=== PATIENT | male | born 1955 | race Caucasian/White ===

== ENCOUNTER 2016-06-15 08:57 | Inpatient (IN) | payer MEDICARE ==
[~2016-06-15] VITALS: Ht 175.3 cm; Wt 107.5 kg
[~2016-06-15 08:57] MED LIST: ASPI81 PO; ATOR40TA PO; CELE200C PO; FENO160T2 PO; MORP30SU PO; VICO7.5T PO; ZIAC2.5T PO; ZOLP5TAB3 PO
[2016-06-15 09:02] VITALS: BP 148/87; PULSE 71; RESP 16; TEMP 99.5; O2SAT 95
[2016-06-15 09:12] VITALS: BP 148/87; PULSE 72; RESP 16; O2SAT 95
[2016-06-15] MEDS ORDERED: ATOR40TA16 PO (09:12)
[2016-06-15] MEDS ORDERED: FENO160T PO (09:12)
[2016-06-15] MEDS ORDERED: CELE1CAP8 PO (09:12)
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
[2016-06-15] MEDS ORDERED: DILAUDID PUMP (09:41)
[2016-06-15] MEDS ORDERED: KETOROLAC TROMETHAMINE 60 MG/2 ML (IM) VIAL IM ONE (09:45)
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
[2016-06-15 10:32] VITALS: BP 132/81; PULSE 65; RESP 16; O2SAT 95
[2016-06-15 12:05] VITALS: BP 136/67; PULSE 69; RESP 22; O2SAT 93
[2016-06-15] MEDS ORDERED: SODIUM CHLORIDE 0.9% FLUSH 5 ML FLUSH FLUSH PRN (13:00)
[2016-06-15] MEDS ORDERED: NALOXONE HCL 0.4 MG/ML AMP IV PRN ×3 (13:00→14:00)
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
[2016-06-15] MEDS ORDERED: ACETAMINOPHEN 325 MG TAB PO PRN (13:30)
[2016-06-15] MEDS ORDERED: TEMAZEPAM 15 MG CAP PO PRN (13:30)
[2016-06-15] MEDS ORDERED: ONDANSETRON HCL 4 MG/2 ML VIAL IVP PRN (13:30)
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
[2016-06-15] MEDS ORDERED: ACETAMINOPHEN/HYDROcodone 325 MG/10 MG TAB PO PRN (14:00)
[2016-06-15] MEDS ORDERED: ACETAMINOPHEN/HYDROcodone 325 MG/5 MG TAB PO PRN (14:00)
[2016-06-15] MEDS: NICOTINE 21 MG/24 HR PATCH TD SCH (16:48)
[2016-06-15] MEDS: SODIUM CHLOR 0.9% 1000 ML INJ 1,000 ML IV SCH ×2 (16:48→17:10)
[2016-06-15 17:05] VITALS: BP 144/77; PULSE 62; RESP 18; TEMP 98.2; O2SAT 93
[2016-06-15] MEDS: MORPHINE SULFATE 4 MG/ML INJ IV PRN ×2 (17:17→21:44)
[2016-06-15 20:00] VITALS: BP 135/68; PULSE 67; RESP 22; TEMP 97.9; O2SAT 93
[2016-06-15] MEDS ORDERED: SODIUM CHLORIDE 0.9% FLUSH 5 ML FLUSH FLUSH SCH (21:00)
[2016-06-15] MEDS: REMOVE OLD NICODERM (NICOTINE) PATCH TD SCH (21:00)
[2016-06-15] MEDS: DOCUSATE SODIUM 50 MG/SENNA 8.6 MG TAB PO SCH (21:19)
[2016-06-16] VITALS (9 sets, daily range): BP systolic 99–131; BP diastolic 55–69; PULSE 55–91; RESP 16–18; TEMP 96.4–99.1; O2SAT 89–96
[2016-06-16] MEDS ORDERED: INSULIN HUMAN REGULAR 1,000 UNITS/10 ML VIAL SQ PRN (02:00)
[2016-06-16] MEDS ORDERED: SODIUM CHLORID 0.9% 500 ML IV SCH (02:00)
[2016-06-16] MEDS: LACTATED RINGER'S 1000 ML IV SCH (02:00)
[2016-06-16] MEDS ORDERED: METOPROLOL TARTRATE 25 MG TAB PO PRN (02:00)
[2016-06-16 02:01] LABS: AUTOMATED NEUTROPHIL # 7.8 TH/MM3 (1.8-7.7); BASOPHIL # 0.1 TH/MM3 (0-0.2); BASOPHIL % 0.6 % (0.0-2.0); EOSINOPHIL # 0.2 TH/MM3 (0-0.4); EOSINOPHIL % 2.4 % (0.0-4.0); HEMATOCRIT 42.6 % (39.0-51.0); HEMO FLAGS DIFF FINAL; LYMPH % 16.1 % (9.0-44.0); LYMPHOCYTE # 1.7 TH/MM3 (1.0-4.8); MEAN CELL VOLUME 86.9 FL (80.0-100.0); MEAN CORPUSCULAR HEMOGLOBIN 29.4 PG (27.0-34.0); MEAN CORPUSCULAR HGB CONC 33.8 % (32.0-36.0); MONO % 6.7 % (0.0-8.0); NEUT % 74.2 % (16.0-70.0); PLATELET COUNT 247 TH/MM3 (150-450); RED CELL DISTRIBUTION WIDTH 12.9 % (11.6-17.2); WHITE BLOOD COUNT 10.6 TH/MM3 (4.0-11.0)
[2016-06-16 02:13] LABS: INTERNATIONAL NORMALIZED RATIO 1.1 RATIO; PROTHROMBIN TIME - PATIENT 12.3 SEC (9.8-11.6)
[2016-06-16 02:42] LABS: BICARBONATE 28.3 MEQ/L (21.0-32.0); POTASSIUM 3.8 MEQ/L (3.5-5.1)
[2016-06-16] MEDS: SODIUM CHLOR 0.9% 1000 ML INJ 1,000 ML IV SCH ×3 (03:44→17:58)
[2016-06-16] MEDS: MORPHINE SULFATE 4 MG/ML INJ IV PRN (06:11)
[2016-06-16] MEDS ORDERED: GENTAMICIN SULFATE 80 MG/2 ML VIAL ONE (06:25)
[2016-06-16] MEDS ORDERED: ceFAZolin 2 GM PREMIX 50 ML ONE (06:41)
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
[2016-06-16] MEDS ORDERED: HYDR-3366 PO (06:43)
[2016-06-16] MEDS ORDERED: WALKER WHEELS/F1 MIS (06:43)
[2016-06-16] MEDS ORDERED: XARE10TA PO (06:43)
--- NOTE | 2016-06-16 06:44 | HHI.FF ---
Face to Face Verification Diagnosis: (1) Closed right hip fracture Physical Therapy Gait training Hip: Total hip, Protocol: Right, Posterior hip precautions, Progress to weight bearing Canvas Knee Splint: Other (only wear while in bed) Right LE Weight Bearing: WB as tolerated Nursing Dressing Changes: Daily dressing change, Coverderm/Primapore (begin xeroform POD 10) I have seen patient Daniel Huddleston on 06/16/16. My clinical findings support the need for the requested home health care services because: Ltd mobility - disease progression I certify that my clinical findings support that this patient is homebound because: Post-op weakness Daniel Mustafa Jun 16, 2016 06:44
[2016-06-16] MEDS: ATORVASTATIN 40 MG TAB PO SCH (09:00)
[2016-06-16] MEDS: DOCUSATE SODIUM 50 MG/SENNA 8.6 MG TAB PO SCH ×2 (09:00→21:00)
[2016-06-16] MEDS ORDERED: VANCOMYCIN HCL 1000 MG VIAL ONE (09:09)
[2016-06-16] MEDS ORDERED: SODIUM CHLOR 0.9% 250 ML INJ 250 ML ONE (09:10)
[2016-06-16] MEDS ORDERED: ACETAMINOPHEN 1000 MG/100 ML VIAL IV ONE (09:45)
[2016-06-16] MEDS ORDERED: MIDAZOLAM HCL 2 MG/2 ML VIAL ONE (09:45)
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
[2016-06-16] MEDS ORDERED: SODIUM CHLORIDE 0.9% IV SCH (10:00)
[2016-06-16] MEDS ORDERED: TRANEXAMIC ACID IV SCH (10:00)
[2016-06-16] MEDS ORDERED: VANCOMYCIN HCL 1000 MG VIAL OTHER ONE (10:15)
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
[2016-06-16] MEDS ORDERED: EXPAREL PERI-ARTICULAR INJECTION (TOTAL VOL. 60 ML) P-ARTICULR ONE ×2 (10:45)
--- NOTE | 2016-06-16 11:22 | PD.OP ---
cc: Alexandre Greco MD Operative Report Date of Surgery: Jun 16, 2016 Preoperative Diagnosis: Displaced right femoral neck fracture Postoperative Diagnosis: Same Procedure: Right hip bipolar hemiarthroplasty Anesthesia: Gen. Surgeon: Alexandre Greco [employer] Consultant(s): MANAN Faith PA-C The surgical procedure was assisted by my physician assistant womens volleyball coach. My P.A. presence was necessary throughout this case for the manipulation and positioning of the surgical extremity. My P.A. was assisting me throughout the duration of this procedure. The skill set of a physician assistant womens volleyball coach was medically necessary to complete this procedure. During the surgical case the ophthalmology surgical technician was working at the back table and the physician assistant womens volleyball coach was directly assisting me. Operation and Findings: PLAN OF ACTIVITY Weight bear as tolerated. IMPLANTS USED Zeptoruy Corail size 12 high offset stem with size [52] bipolar head and [+1.5] neck. DRAIN: 7 mm Saroj-Hamlin drain DETAILS OF PROCEDURE This patient was brought into the operating room and placed on the OR table. The patient was given anesthesia. The patient received IV antibiotics. The patient was then placed in lateral decubitus position. The hip and leg were prepped with alcohol, followed by Hibiclens and draped in a usual sterile fashion. Clean air was used for this procedure. Time out procedure was performed. The procedure began with a 5 inch incision over the posterolateral hip. The subcutaneous tissue was dissected with the Bovie. The iliotibial band were split in line with fibers. The Charnley retractor was placed. The piriformis and external rotators were released from the femur and tagged with a #1 Vicryl suture. The capsule is now incised and tagged with #1 Vicryl. The femoral neck fracture was now visualized. A corkscrew was now used to remove the femoral head. The femoral head was sized and measured. Soft tissue was now protected. The hip skid was placed underneath the femoral neck. An oscillating saw was used to make a femoral neck cut. At this point attention was turned to preparation of the proximal femur. A box osteotome was used to remove the lateral cortex of the femoral neck. The T- handle reamer was used to open the femoral canal. Next, the canal was broached. A lateralizing reamer was used to help lateralize the prosthesis. At this point a trial head and neck were placed. The hip was reduced. The patient was found to have excellent stability with good range of motion. Trial components were removed. Soft tissue and bone were thoroughly irrigated. A Corail stem was now opened. The stem was now impacted into the proximal femur. Care was taken to keep appropriate anteversion. The head and neck were now impacted onto the stem. The hip was again reduced. The hip was found to have good range of motion and good stability. Leg lengths were clinically equal. The wound was thoroughly irrigated. The capsule, piriformis and iliotibial band were closed with #1 Vicryl. Subcutaneous tissue was closed with 3-0 Vicryl. The skin was closed with mary. A sterile dressing was applied with Primapore. The patient was placed into a knee immobilizer. The patient was awakened and transferred to the recovery room in stable condition. Needle and sponge counts were correct. Alexandre Greco MD Jun 16, 2016 11:22
[2016-06-16] MEDS ORDERED: SODIUM CHLORIDE 0.9% FLUSH 5 ML FLUSH IVF PRN (11:30)
[2016-06-16] MEDS ORDERED: MORPHINE SULFATE 4 MG/ML INJ IV PUSH PRN (11:30)
[2016-06-16] MEDS ORDERED: Post-op Orders (for Pharmacy) MISC XX ONE (11:30)
[2016-06-16] MEDS ORDERED: ERGOCALCIFEROL (VIT D2) 50,000 UNIT CAP PO ONE (11:30)
[2016-06-16] MEDS ORDERED: DO NOT ADM ANY ANTICOAGULANT DRUGS XX PRN (11:45)
[2016-06-16] MEDS ORDERED: fentaNYL CITRATE 250 MCG/5 ML AMP ONE (11:58)
[2016-06-16] MEDS ORDERED: ONDANSETRON HCL 4 MG/2 ML VIAL IV PUSH ONE (12:00)
[2016-06-16] MEDS ORDERED: PROPOFOL 200 MG/20 ML AMP IV ONE (12:00)
[2016-06-16] MEDS ORDERED: NEOSTIGMINE 3 MG/3 ML SYR IV ONE (12:00)
--- NOTE | 2016-06-16 14:36 | RADRPT ---
EXAM DATE/TIME: 06/16/2016 14:19 [facility] COMPARISON: HIP RIGHT (AP&LAT 2/3VWS) WO AP PELVIS, June 15, 2016, 11:43. INDICATIONS : Post op. Right total hip replacement. MEDICAL HISTORY : None. SURGICAL HISTORY : Pain pump. Spinal cord stimulator. ENCOUNTER: Initial ACUITY: 1 day PAIN SCORE: 2/10 LOCATION: Right hip. FINDINGS: The patient is post right hip are plasty. Orthopedic hardware is in excellent position. The alignment is good. There are surgical mary and a drain in place. CONCLUSION: 1. Patient is post right hip arthroplasty secondary to fracture. Hardware is in excellent position. Isrrael Mccallum MD on June 16, 2016 at 14:34 Board Certified Radiologist. This report was verified electronically.
[2016-06-16] MEDS: ceFAZolin 2 GM PREMIX 50 ML IV SCH ×2 (15:35→21:49)
[2016-06-16] MEDS: NICOTINE 21 MG/24 HR PATCH TD SCH (15:36)
--- NOTE | 2016-06-16 16:40 | EKG ---
Date Performed: 06/15/2016 Time Performed: 15:15:08 PTAGE: 61 years EKG: Sinus rhythm ST DEVIATION AND MARKED T-WAVE ABNORMALITY, CONSIDER ANTEROLATERAL ISCHEMIA ABNORMAL ECG PREVIOUS TRACING : 09/18/2014 10.31 Compared to prior tracing no significant change DOCTOR: Mg Antoine Interpretating Date/Time 06/16/2016 16:38:49
[2016-06-16] MEDS: REMOVE OLD NICODERM (NICOTINE) PATCH TD SCH (21:00)
[2016-06-16] MEDS: SODIUM CHLORIDE 0.9% FLUSH 5 ML FLUSH IVF SCH (21:50)
[2016-06-17 00:01] VITALS: BP 103/59; PULSE 77; RESP 16; TEMP 98.1; O2SAT 94
[2016-06-17] MEDS: ACETAMINOPHEN/HYDROcodone 325 MG/10 MG TAB PO PRN ×2 (00:31→06:23)
[2016-06-17] MEDS: LACTATED RINGER'S 1000 ML IV SCH (02:00)
[2016-06-17 04:30] VITALS: BP 105/62; PULSE 70; RESP 16; TEMP 98.2; O2SAT 94
[2016-06-17] MEDS: ceFAZolin 2 GM PREMIX 50 ML IV SCH (05:38)
[2016-06-17 06:40] LABS: HEMATOCRIT 38.5 % (39.0-51.0); REVIEW FLAG FINAL
[2016-06-17 07:11] VITALS: BP 111/53; PULSE 75; RESP 18; TEMP 99.6; O2SAT 93
--- NOTE | 2016-06-17 07:48 | PD.ORT.PN ---
Subjective Subjective Remarks No complaints. He has been walking in the [place]. Once to be discharged home Objective Vitals Vital Signs Date Time Temp Pulse Resp B/P Pulse Ox O2 Delivery O2 Flow Rate FiO2 06/17/16 04:30 98.2 70 16 105/62 94 06/17/16 00:01 98.1 77 16 103/59 94 06/16/16 19:40 97.5 81 16 99/61 95 06/16/16 18:32 96 Nasal Cannula 1.00 06/16/16 16:00 97.1 91 18 118/58 96 06/16/16 12:58 96.4 69 17 107/69 92 06/16/16 12:40 98.5 66 16 95 Nasal Cannula 2 06/16/16 12:30 66 16 129/78 94 Nasal Cannula 2 06/16/16 12:15 68 16 125/75 95 Nasal Cannula 2 06/16/16 12:00 69 15 131/78 96 Nasal Cannula 2 06/16/16 11:47 98.3 79 16 137/80 98 Nasal Cannula 4 06/16/16 08:31 95 Nasal Cannula 1.00 06/16/16 08:00 99.1 55 18 100/55 92 I/O 06/16/16 06/16/16 06/16/16 06/17/16 06/17/16 06/17/16 07:00 15:00 23:00 07:00 15:00 23:00 Intake Total 0 ml 1150 ml 1080 ml 897 ml Output Total 935 ml 670 ml 460 ml 320 ml Balance -935 ml 480 ml 620 ml 577 ml Intake Oral 0 ml 1080 ml 480 ml IV Total 250 ml 417 ml Other 900 ml Output Urine Total 935 ml 525 ml 450 ml 250 ml Drainage Total 45 ml 10 ml 70 ml Estimated Blood Loss 100 ml # Voids 1 1 # Bowel Movements 0 0 Result Diagram: 06/17/16 0542 06/16/16 0150 Imaging Last 24 hours Impressions Hip X-Ray 06/15/16931 Signed Impressions: Service Date/Time: May 11:43 - CONCLUSION: Subcapital fracture of the right hip. Dc Burnette MD Ankle X-Ray 06/15/16931 Signed Impressions: Service Date/Time: May 09:58 - CONCLUSION: Old healed fracture deformity involving the distal tibia with degenerative changes at the tibiotalar articulation. No evidence of acute injury. Jessica Estrada MD Objective Remarks Dressing dry. Leg lengths equal. Motor examination appears normal. Mild swelling Assessment & Plan Ortho Post Op Day #: 1 Problem List: Assessment and Plan Postop day 1 status post right hip hemiarthroplasty Weight-bear as tolerated Posterior hip precautions Discharge home today. Dressing changes daily. Home healthcare. Follow-up in 2 weeks. Meds written Xarelto for anticoagulation Silver Sheets MD Jun 17, 2016 07:47
[2016-06-17] MEDS ORDERED: CHOL5000 PO (08:07)
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
[2016-06-17] MEDS: ATORVASTATIN 40 MG TAB PO SCH (08:47)
[2016-06-17] MEDS: NICOTINE 21 MG/24 HR PATCH TD SCH (08:47)
[2016-06-17] MEDS: DOCUSATE SODIUM 50 MG/SENNA 8.6 MG TAB PO SCH (08:47)
[2016-06-17] MEDS: SODIUM CHLORIDE 0.9% FLUSH 5 ML FLUSH IVF SCH (08:51)
[2016-06-17] MEDS ORDERED: CHOLECALCIFEROL (VIT D3) 5000 UNIT CAP PO SCH (09:00)
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
[2016-06-17 10:55] VITALS: O2SAT 96
[2016-06-17] MEDS ORDERED: ENOXAPARIN SODIUM 30 MG/0.3 ML SYRINGE SQ SCH (11:00)
== END 2016-06-17 11:12 | disposition home health service (06) | DRG 470 ==
LOC: NEPA 08:57 → NEDA 12:54 → N06B 17:09
PROVIDERS: ADMIT Family Medicine; ATTEND Family Medicine
PROC: 0SR90JA Replacement of Right Hip Joint with Synthetic Substitute, Uncemented, Open Approach (ICD-10-PCS; principal; 2016-06-16 09:56)
DX: S72.011A Unspecified intracapsular fracture of right femur, initial encounter for closed fracture (principal); E55.9 Vitamin D deficiency, unspecified; I10 Essential (primary) hypertension; S90.01XA Contusion of right ankle, initial encounter; S90.511A Abrasion, right ankle, initial encounter; E78.5 Hyperlipidemia, unspecified; G89.29 Other chronic pain; K21.9 Gastro-esophageal reflux disease without esophagitis; V23.4XXA Motorcycle driver injured in collision with car, pick-up truck or van in traffic accident, initial encounter; Y92.410 Unspecified street and highway as the place of occurrence of the external cause; F17.210 Nicotine dependence, cigarettes, uncomplicated; Z87.442 Personal history of urinary calculi; Z98.1 Arthrodesis status
CPT/HCPCS: 73502; 73610; 80048; 82306; 85014; 85018; 85025; 85610; 93005; 96372; C1776; C9290; J0131; J0690; J1580; J1885; J2250; J2270; J2405; J2710; J3010; J3370; J7030; J7050; L1830